=== PATIENT | female | born 1980 | race Native Hawaiian/Other Pacific Islander ===

== ENCOUNTER 2022-05-29 13:15 | Emergency (ER) | payer MEDICAID ==
[~2022-05-29] VITALS: Ht 157.5 cm; Wt 86.6 kg
[2022-05-29 13:20] VITALS: BP 114/71
[2022-05-29] MEDS ORDERED: METOCLOPRAMIDE 10 MG TAB PO ONE (14:35)
[2022-05-29] MEDS ORDERED: SUMAtriptan succinate 25 MG TAB PO ONE (14:35)
[2022-05-29] MEDS ORDERED: diphenhydrAMINE 50 MG CAP PO ONE (14:35)
[2022-05-29] MEDS ORDERED: KETOROLAC 30 MG/ML VIAL IM ONE (14:35)
--- NOTE | 2022-05-29 14:56 | NUR ---
PT AMBULATED TO ER BED 9
--- NOTE | 2022-05-29 15:00 | NUR ---
42 Y/O FEMALE BIB SELF C/O LEFT SIDED HEADACHE SINCE LAST NIGHT, REPORTS TAKING TYLENOL LAST NIGHT AND THIS MORNING WITH NO RELIEF. DENIES N/V/D, DIZZINESS OR VISION CHANGES. PMH: DENIES NKA
[2022-05-29] MEDS ORDERED: ONDA-188 PO (16:34)
[2022-05-29] MEDS ORDERED: IBUP-2213 PO (16:34)
[2022-05-29 16:45] VITALS: BP 124/77
--- NOTE | 2022-05-29 16:46 | NUR ---
Patient discharged with v/s stable. Written and verbal after care instructions given and explained. Patient alert, oriented and verbalized understanding of instructions. Ambulatory with steady gait. All questions addressed prior to discharge. ID band removed. Patient advised to follow up with PMD. Rx of MOTRIN, ZOFRAN given. Patient educated on indication of medication including possible reaction and side effects. Opportunity to ask questions provided and answered.
== END 2022-05-29 16:46 | disposition home or self-care (01) ==
LOC: MED 13:15
DX: R51.9 Headache, unspecified (principal)
CPT/HCPCS: 96372; 99283; J1885; J8597; Q0163